=== PATIENT | male | born 1945 | race African-American/Black ===

== ENCOUNTER 2016-07-05 14:51 | Emergency (ER) | payer MEDICARE, MEDICAID ==
[2016-07-05] MEDS ORDERED: Ibuprofen 200 MG TAB ONE (15:00)
[2016-07-05] MEDS ORDERED: Acetaminophen 500 MG TAB ONE (15:02)
== END 2016-07-05 15:18 | disposition home or self-care (01) ==
LOC: BURERS 14:51
DX: B34.9 Viral infection, unspecified (principal); E11.9 Type 2 diabetes mellitus without complications; E78.5 Hyperlipidemia, unspecified; I11.0 Hypertensive heart disease with heart failure; I50.9 Heart failure, unspecified; J44.9 Chronic obstructive pulmonary disease, unspecified
CPT/HCPCS: 99283

== ENCOUNTER 2016-07-11 12:52 | Outpatient (CLI) | payer MEDICARE, MEDICAID ==
--- NOTE | 2016-07-11 22:35 | ULT ---
RIGHT LOWER EXTREMITY VENOUS ULTRASOUND 07/11/16 Ultrasonography of the right lower extremity was performed. No echogenic clot was seen. There is goo d compressibility of all deep veins from groin to ankle. There is normal doppler response to augment ation maneuvers. IMPRESSION: No evidence of DVT. POS: HOME
== END 2016-07-11 12:53 | disposition home or self-care (01) ==
LOC: BURULT 12:52
PROVIDERS: ATTEND Family Medicine
DX: I82.411 Acute embolism and thrombosis of right femoral vein (principal)

== ENCOUNTER 2016-07-29 10:17 | Emergency (ER) | payer MEDICARE, MEDICAID ==
[2016-07-29] MEDS ORDERED: Ondansetron ODT 4 MG TAB ONE (10:46)
[2016-07-29 11:06] LABS: #Eosinphils 0.1 thou/uL (0.0-0.7); #Lymphocytes 1.3 thou/uL (1.20-3.40); #Monocytes 0.4 thou/uL (0.11-0.59); #Neutrophils 4.7 thou/uL (1.40-6.50); %Basophils 0.5 % (0.0-1.0); %Eosinophils 0.8 % (0.0-10.0); %Lymphocytes 19.4 % (21.0-51.0); %Monocytes 6.4 % (0.0-10.0); %Neutrophils 72.9 % (42.0-75.0); Hemoglobin 13.4 g/dL (14.0-18.0); Mean Corpuscular HGB CONC 32.5 g/dL (32.0-36.0); Mean Corpuscular Hemoglobin 30.9 pg (27.0-31.0); Mean Platelet Volume 5.1 fL (7.4-10.4); Platelet Count 392 thou/uL (130-400); RBC Distribution Width 12.8 % (11.5-14.5); Red Blood Cell (RBC) Count 4.35 mill/uL (4.70-6.10); White Blood Cell (WBC) Count 6.5 thou/uL (4.8-10.8)
[2016-07-29 11:23] LABS: ALT (SGPT) 412 U/L (0-55); AST (SGOT) 539 U/L (5-34); Albumin 3.8 g/dL (3.4-4.8); Alkaline Phosphatase 137 U/L (40-150); Anion Gap 13 mmol/L (10-20); BUN (Urea Nitrogen) 14 mg/dL (8.4-25.7); Bilirubin, Total 1.3 mg/dL (0.2-1.2); CK (CPK) 58 U/L (30-200); Calc. Creatinine Clearance 0 mL/min (70-130); Calcium 9.2 mg/dL (7.8-10.44); Carbon Dioxide 28 mmol/L (23-31); Chloride 104 mmol/L (98-107); Estimated GFR-MDRD 68; Globulin 3.3 g/dL (2.4-3.5); Glucose 111 mg/dL (83-110); Lipase 54 U/L (8-78); Potassium 4.7 mmol/L (3.5-5.1); Protein, Total 7.1 g/dL (5.8-8.1); Sodium 140 mmol/L (136-145)
[2016-07-29 11:24] LABS: CKMB 1.4 ng/mL (0-6.6); Troponin I Less than 0.010 ng/mL (< 0.028)
== END 2016-07-29 13:07 | disposition short-term general hospital (02) ==
LOC: BURERS 10:17
DX: R11.2 Nausea with vomiting, unspecified (principal); R79.89 Other specified abnormal findings of blood chemistry; E11.9 Type 2 diabetes mellitus without complications; I11.0 Hypertensive heart disease with heart failure; I50.9 Heart failure, unspecified; J44.9 Chronic obstructive pulmonary disease, unspecified; E78.5 Hyperlipidemia, unspecified; Z79.84 Long term (current) use of oral hypoglycemic drugs; Z79.899 Other long term (current) drug therapy
CPT/HCPCS: 36416; 80053; 82553; 83690; 84484; 85025; 93005; 96360; Q0162

== ENCOUNTER 2016-11-11 11:13 | Emergency (ER) | payer MEDICARE, MEDICAID ==
[2016-11-11 11:52] LABS: ALT (SGPT) 14 U/L (8-55); AST (SGOT) 18 U/L (5-34); Albumin 3.8 g/dL (3.4-4.8); Alkaline Phosphatase 52 U/L (40-150); Anion Gap 17 mmol/L (10-20); BUN (Urea Nitrogen) 18 mg/dL (8.4-25.7); Bilirubin, Total 0.9 mg/dL (0.2-1.2); Calc. Creatinine Clearance 0 mL/min (70-130); Calcium 9.2 mg/dL (7.8-10.44); Carbon Dioxide 23 mmol/L (23-31); Chloride 100 mmol/L (98-107); Estimated GFR-MDRD 67; Globulin 3.8 g/dL (2.4-3.5); Glucose 110 mg/dL (83-110); Potassium 4.2 mmol/L (3.5-5.1); Protein, Total 7.6 g/dL (5.8-8.1); Sodium 136 mmol/L (136-145)
[2016-11-11 11:54] LABS: CKMB 0.5 ng/mL (0-6.6); Troponin I Less than 0.010 ng/mL (< 0.028)
[2016-11-11 11:59] LABS: Band 2 % (5-11); Hemoglobin 14.9 g/dL (14.0-18.0); Lymphocytes 18 % (21-51); MDiff Complete? YES; Mean Corpuscular HGB CONC 33.9 g/dL (32.0-36.0); Mean Corpuscular Hemoglobin 31.5 pg (27.0-31.0); Mean Corpuscular Volume 92.9 fl (80.0-94.0); Mean Platelet Volume 6.3 fL (7.4-10.4); Monocytes 11 % (0-10); Neutrophil 69 % (42-75); Platelet Count 218 thou/uL (130-400); RBC Distribution Width 12.6 % (11.5-14.5); Red Blood Cell (RBC) Count 4.73 mill/uL (4.70-6.10)
--- NOTE | 2016-11-11 20:45 | RAD ---
CHEST TWO VIEWS: Date: 11-11-16 Comparison: 03-08-16 FINDINGS: The heart is normal in size. The lungs are clear. There is no convincing sign of pneumonia at the mo ment. There is some mild prominence of some of the right basilar markings, however, this was true in 2016 so I am not convinced that this finding is acute. If symptoms continue, then a serial follow u p film to take a second look at this area could be useful. There are no large effusions. There is no congestion or edema. The mediastinum is unremarkable. IMPRESSION: Probably negative study, but consider follow up study for a second look at the right lung base if sy mptoms continue. Code T POS: HOME
== END 2016-11-11 12:18 | disposition home or self-care (01) ==
LOC: BURERS 11:13
DX: R50.9 Fever, unspecified (principal); I11.0 Hypertensive heart disease with heart failure; I50.9 Heart failure, unspecified; E11.9 Type 2 diabetes mellitus without complications; E78.5 Hyperlipidemia, unspecified; G47.30 Sleep apnea, unspecified; J44.9 Chronic obstructive pulmonary disease, unspecified; F17.210 Nicotine dependence, cigarettes, uncomplicated; Z79.84 Long term (current) use of oral hypoglycemic drugs; Z79.899 Other long term (current) drug therapy
CPT/HCPCS: 36415; 36416; 71020; 80053; 82553; 84443; 84484; 85025; 87040; 93005

== ENCOUNTER 2016-12-03 22:20 | Emergency (ER) | payer MEDICARE, MEDICAID ==
[2016-12-03] MEDS ORDERED: Ondansetron HCl/PF 4 MG/2 ML Vial ONE (22:51)
[2016-12-03 22:53] LABS: #Basophils 0.1 thou/uL (0.0-0.2); #Eosinphils 0.2 thou/uL (0.0-0.7); #Lymphocytes 2.1 thou/uL (1.20-3.40); #Monocytes 0.4 thou/uL (0.11-0.59); #Neutrophils 1.9 thou/uL (1.40-6.50); %Basophils 1.5 % (0.0-1.0); %Eosinophils 3.7 % (0.0-10.0); %Lymphocytes 45.3 % (21.0-51.0); %Monocytes 7.8 % (0.0-10.0); %Neutrophils 41.7 % (42.0-75.0); Hemoglobin 14.2 g/dL (14.0-18.0); Mean Corpuscular HGB CONC 33.3 g/dL (32.0-36.0); Mean Corpuscular Hemoglobin 30.5 pg (27.0-31.0); Mean Corpuscular Volume 91.8 fl (80.0-94.0); Mean Platelet Volume 5.3 fL (7.4-10.4); Platelet Count 260 thou/uL (130-400); RBC Distribution Width 12.4 % (11.5-14.5); Red Blood Cell (RBC) Count 4.66 mill/uL (4.70-6.10); White Blood Cell (WBC) Count 4.6 thou/uL (4.8-10.8)
[2016-12-03 23:07] LABS: ALT (SGPT) 109 U/L (8-55); AST (SGOT) 34 U/L (5-34); Albumin 3.8 g/dL (3.4-4.8); Alkaline Phosphatase 121 U/L (40-150); Anion Gap 16 mmol/L (10-20); BUN (Urea Nitrogen) 18 mg/dL (8.4-25.7); Bilirubin, Total 1.6 mg/dL (0.2-1.2); Calc. Creatinine Clearance 0 mL/min (70-130); Calcium 9.3 mg/dL (7.8-10.44); Carbon Dioxide 25 mmol/L (23-31); Chloride 102 mmol/L (98-107); Estimated GFR-MDRD 60; Globulin 3.6 g/dL (2.4-3.5); Glucose 122 mg/dL (83-110); Potassium 3.5 mmol/L (3.5-5.1); Protein, Total 7.4 g/dL (5.8-8.1); Sodium 139 mmol/L (136-145)
[2016-12-03 23:47] LABS: Lipase 53 U/L (8-78)
[2016-12-04 00:41] LABS: Blood, Urine Moderate (Negative); Clarity Cloudy (Clear); Glucose, Urine (Dipstick) 100 mg/dL (Negative); Leukocyte Small (Negative); Nitrite Positive (Negative); Protein, Urine (Dipstick) 30 mg/dL (Neg-Trace); Specific Gravity, Urine 1.015 (1.005-1.030)
[2016-12-04 00:44] LABS: Bilirubin Negative (Negative)
[2016-12-04 00:45] LABS: Bacteria/HPF 4+ HPF (None Seen); RBC/HPF GREATER THAN 50-TNTC HPF (0-3)
[2016-12-04 00:46] LABS: WBC/HPF 21-50 HPF (0-3)
[2016-12-04] MEDS ORDERED: cefTRIAXone\\ROCEPHIN 1 GM VIAL ONE (00:50)
[2016-12-04] MEDS ORDERED: Sodium Chloride 0.9% 100 ML ONE (00:50)
== END 2016-12-04 01:27 | disposition home or self-care (01) ==
LOC: BURERS 22:20
DX: N39.0 Urinary tract infection, site not specified (principal); I11.0 Hypertensive heart disease with heart failure; E11.9 Type 2 diabetes mellitus without complications; E78.5 Hyperlipidemia, unspecified; F17.210 Nicotine dependence, cigarettes, uncomplicated; J45.909 Unspecified asthma, uncomplicated; I50.9 Heart failure, unspecified; J44.9 Chronic obstructive pulmonary disease, unspecified; Z79.84 Long term (current) use of oral hypoglycemic drugs; Z79.899 Other long term (current) drug therapy
CPT/HCPCS: 51701; 80053; 81003; 81015; 83690; 85025; 87077; 87086; 87186; 93005; 96361; 96365; 96375; J0696; J2405; J7050

== ENCOUNTER 2016-12-21 22:52 | Emergency (ER) | payer MEDICARE, MEDICAID ==
[2016-12-21] MEDS ORDERED: Nitroglycerin 2% Ointment 1 INCH/1 GM Packet ONE (23:15)
[2016-12-21] MEDS ORDERED: Famotidine In NaCl 20 mg/50 ml Premix Bag ONE (23:20)
[2016-12-21 23:27] LABS: #Basophils 0.1 thou/uL (0.0-0.2); #Eosinphils 0.2 thou/uL (0.0-0.7); #Monocytes 0.5 thou/uL (0.11-0.59); #Neutrophils 2.7 thou/uL (1.40-6.50); %Basophils 1.9 % (0.0-1.0); %Eosinophils 4.2 % (0.0-10.0); %Lymphocytes 35.8 % (21.0-51.0); %Monocytes 8.6 % (0.0-10.0); %Neutrophils 49.5 % (42.0-75.0); Hemoglobin 14.4 g/dL (14.0-18.0); Mean Corpuscular HGB CONC 35.4 g/dL (32.0-36.0); Mean Corpuscular Hemoglobin 33.3 pg (27.0-31.0); Mean Corpuscular Volume 93.9 fl (80.0-94.0); Mean Platelet Volume 5.4 fL (7.4-10.4); Platelet Count 319 thou/uL (130-400); Red Blood Cell (RBC) Count 4.32 mill/uL (4.70-6.10); White Blood Cell (WBC) Count 5.5 thou/uL (4.8-10.8)
[2016-12-21 23:39] LABS: ALT (SGPT) 15 U/L (8-55); AST (SGOT) 16 U/L (5-34); Alkaline Phosphatase 66 U/L (40-150); Anion Gap 14 mmol/L (10-20); BUN (Urea Nitrogen) 14 mg/dL (8.4-25.7); Bilirubin, Total 0.8 mg/dL (0.2-1.2); CK (CPK) 168 U/L (30-200); Calc. Creatinine Clearance 0 mL/min (70-130); Calcium 9.2 mg/dL (7.8-10.44); Carbon Dioxide 26 mmol/L (23-31); Chloride 104 mmol/L (98-107); Estimated GFR-MDRD 44; Globulin 3.2 g/dL (2.4-3.5); Glucose 122 mg/dL (83-110); Potassium 3.9 mmol/L (3.5-5.1); Protein, Total 7.2 g/dL (5.8-8.1); Sodium 140 mmol/L (136-145)
[2016-12-21 23:40] LABS: CKMB 2.3 ng/mL (0-6.6); Troponin I Less than 0.010 ng/mL (< 0.028)
--- NOTE | 2016-12-21 23:59 | RAD ---
PORTABLE CHEST 12/21/16 An AP portable film at 2301 is compared with a 11/28 study. The heart size remains normal. There is no vascular congestion, edema, or pleural effusion. No loba r pulmonary infiltrate was seen. Calcific changes are seen in the aorta. The trachea is midline. IMPRESSION: Arteriosclerosis but no acute findings. POS: HOME
== END 2016-12-22 00:53 | disposition short-term general hospital (02) ==
LOC: BURERS 22:52
DX: R07.9 Chest pain, unspecified (principal); I11.0 Hypertensive heart disease with heart failure; I50.9 Heart failure, unspecified; E11.9 Type 2 diabetes mellitus without complications; E78.5 Hyperlipidemia, unspecified; J45.909 Unspecified asthma, uncomplicated; F17.210 Nicotine dependence, cigarettes, uncomplicated; J44.9 Chronic obstructive pulmonary disease, unspecified; G47.30 Sleep apnea, unspecified; Z86.718 Personal history of other venous thrombosis and embolism; Z86.711 Personal history of pulmonary embolism; Z86.73 Personal history of transient ischemic attack (TIA), and cerebral infarction without residual deficits; Z79.84 Long term (current) use of oral hypoglycemic drugs; Z79.899 Other long term (current) drug therapy; Z79.01 Long term (current) use of anticoagulants
CPT/HCPCS: 36416; 71010; 80053; 82553; 83880; 84484; 85025; 93005; 96365

== ENCOUNTER 2016-12-25 17:46 | Emergency (ER) | payer MEDICARE, MEDICAID ==
[2016-12-25 18:18] LABS: #Basophils 0.1 thou/uL (0.0-0.2); #Eosinphils 0.1 thou/uL (0.0-0.7); #Lymphocytes 1.1 thou/uL (1.20-3.40); #Monocytes 0.5 thou/uL (0.11-0.59); #Neutrophils 3.6 thou/uL (1.40-6.50); %Eosinophils 2.8 % (0.0-10.0); %Lymphocytes 20.3 % (21.0-51.0); %Monocytes 9.3 % (0.0-10.0); %Neutrophils 66.7 % (42.0-75.0); Hemoglobin 12.6 g/dL (14.0-18.0); Mean Corpuscular Hemoglobin 31.5 pg (27.0-31.0); Mean Corpuscular Volume 95.3 fl (80.0-94.0); Mean Platelet Volume 4.4 fL (7.4-10.4); Platelet Count 284 thou/uL (130-400); Red Blood Cell (RBC) Count 4.01 mill/uL (4.70-6.10); White Blood Cell (WBC) Count 5.4 thou/uL (4.8-10.8)
[2016-12-25 18:24] LABS: INR-International Normal Ratio 1.1; Prothrombin Time 14.7 SEC (12.0-14.7)
[2016-12-25 18:34] LABS: ALT (SGPT) 14 U/L (8-55); AST (SGOT) 16 U/L (5-34); Albumin 3.8 g/dL (3.4-4.8); Alkaline Phosphatase 53 U/L (40-150); Anion Gap 12 mmol/L (10-20); BUN (Urea Nitrogen) 15 mg/dL (8.4-25.7); Bilirubin, Total 0.8 mg/dL (0.2-1.2); Calc. Creatinine Clearance 0 mL/min (70-130); Calcium 8.7 mg/dL (7.8-10.44); Carbon Dioxide 25 mmol/L (23-31); Chloride 105 mmol/L (98-107); Estimated GFR-MDRD 62; Globulin 2.8 g/dL (2.4-3.5); Glucose 93 mg/dL (83-110); Potassium 3.5 mmol/L (3.5-5.1); Protein, Total 6.6 g/dL (5.8-8.1); Sodium 138 mmol/L (136-145)
[2016-12-25 18:41] LABS: CKMB 1.1 ng/mL (0-6.6); Troponin I 0.011 ng/mL (< 0.028)
[2016-12-26] MEDS ORDERED: Tetracaine HCl 0.5% Ophth Soln 2 ML Bottle ONE (06:05)
--- NOTE | 2016-12-26 07:02 | CT ---
CT OF THE BRAIN WITHOUT CONTRAST: Date: 12/25/16 Comparison is made with a October 2015 CT. 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 No acute stroke was seen. There is no sign of bleeding, mass, or edema. Atrophy is present. The ventricles show slight dilation commens urate with the degree of atrophy seen. IMPRESSION: No acute intracranial findings. POS: HOME
--- NOTE | 2016-12-26 07:03 | RAD ---
RIGHT INDEX FINGER: Date: 12/25/16 FINDINGS: Three views show no fracture. There is no dislocation. No opaque foreign bodies noted. IMPRESSION: No acute bony finding. POS: HOME
== END 2016-12-25 19:16 | disposition home or self-care (01) ==
LOC: BURERS 17:46
DX: S61.210A Laceration without foreign body of right index finger without damage to nail, initial encounter (principal); E11.9 Type 2 diabetes mellitus without complications; E78.5 Hyperlipidemia, unspecified; J45.909 Unspecified asthma, uncomplicated; J44.9 Chronic obstructive pulmonary disease, unspecified; I11.0 Hypertensive heart disease with heart failure; I50.9 Heart failure, unspecified; Z86.711 Personal history of pulmonary embolism; F17.210 Nicotine dependence, cigarettes, uncomplicated; W19.XXXA Unspecified fall, initial encounter
CPT/HCPCS: 70450; 80053; 82553; 84484; 85025; 85610; 85730

== ENCOUNTER 2016-12-31 08:36 | Emergency (ER) | payer MEDICARE, MEDICAID ==
[2016-12-31 09:18] LABS: #Basophils 0.1 thou/uL (0.0-0.2); #Eosinphils 0.2 thou/uL (0.0-0.7); #Monocytes 0.5 thou/uL (0.11-0.59); #Neutrophils 5.2 thou/uL (1.40-6.50); %Basophils 0.9 % (0.0-1.0); %Eosinophils 2.2 % (0.0-10.0); %Lymphocytes 15.2 % (21.0-51.0); %Monocytes 6.6 % (0.0-10.0); %Neutrophils 75.2 % (42.0-75.0); Hemoglobin 14.1 g/dL (14.0-18.0); Mean Corpuscular HGB CONC 33.8 g/dL (32.0-36.0); Mean Corpuscular Hemoglobin 32.1 pg (27.0-31.0); Mean Corpuscular Volume 94.8 fl (80.0-94.0); Mean Platelet Volume 5.9 fL (7.4-10.4); Platelet Count 265 thou/uL (130-400); RBC Distribution Width 13.3 % (11.5-14.5); Red Blood Cell (RBC) Count 4.39 mill/uL (4.70-6.10); White Blood Cell (WBC) Count 6.9 thou/uL (4.8-10.8)
[2016-12-31 09:20] LABS: CKMB 1.1 ng/mL (0-6.6); Troponin I Less than 0.010 ng/mL (< 0.028)
[2016-12-31 09:23] LABS: ALT (SGPT) 182 U/L (8-55); AST (SGOT) 67 U/L (5-34); Alkaline Phosphatase 204 U/L (40-150); Anion Gap 13 mmol/L (10-20); BUN (Urea Nitrogen) 13 mg/dL (8.4-25.7); Bilirubin, Total 1.8 mg/dL (0.2-1.2); Calc. Creatinine Clearance 0 mL/min (70-130); Calcium 9.5 mg/dL (7.8-10.44); Carbon Dioxide 27 mmol/L (23-31); Chloride 102 mmol/L (98-107); Estimated GFR-MDRD 84; Globulin 3.3 g/dL (2.4-3.5); Glucose 135 mg/dL (83-110); Lipase 176 U/L (8-78); Potassium 4.2 mmol/L (3.5-5.1); Protein, Total 7.3 g/dL (5.8-8.1); Sodium 138 mmol/L (136-145)
[2016-12-31] MEDS ORDERED: Lidocaine Viscous Sol 2% 15 ml UD Cup ONE (10:02)
[2016-12-31] MEDS ORDERED: Mag-Al Plus 1200 MG/1200 MG/120 MG/30 ML UDCUP ONE (10:02)
== END 2016-12-31 11:00 | disposition short-term general hospital (02) ==
LOC: BURERS 08:36
DX: R10.816 Epigastric abdominal tenderness (principal); I11.0 Hypertensive heart disease with heart failure; I50.9 Heart failure, unspecified; E11.9 Type 2 diabetes mellitus without complications; J45.909 Unspecified asthma, uncomplicated; F17.210 Nicotine dependence, cigarettes, uncomplicated; G47.30 Sleep apnea, unspecified
CPT/HCPCS: 36415; 80053; 82553; 83690; 84484; 85025; 93005; 96361; 96374; J2270

== ENCOUNTER 2017-06-04 12:13 | Emergency (ER) | payer MEDICARE, MEDICAID ==
[2017-06-04] MEDS ORDERED: Nitroglycerin 0.4 MG TAB (25 Tab Bottle) ONE ×2 (12:36→13:27)
[2017-06-04 12:41] LABS: PTT 36.8 SEC (22.9-36.1); Prothrombin Time 13.4 SEC (12.0-14.7)
[2017-06-04 12:47] LABS: #Basophils 0.1 thou/uL (0.0-0.2); #Eosinphils 0.2 thou/uL (0.0-0.7); #Lymphocytes 2.5 thou/uL (1.20-3.40); #Monocytes 0.3 thou/uL (0.11-0.59); #Neutrophils 2.7 thou/uL (1.40-6.50); %Basophils 1.6 % (0.0-1.0); %Eosinophils 3.3 % (0.0-10.0); %Lymphocytes 42.8 % (21.0-51.0); %Neutrophils 47.3 % (42.0-75.0); Hemoglobin 14.8 g/dL (14.0-18.0); Mean Corpuscular HGB CONC 34.1 g/dL (32.0-36.0); Mean Corpuscular Hemoglobin 30.6 pg (27.0-31.0); Mean Corpuscular Volume 89.7 fl (80.0-94.0); Platelet Count 349 thou/uL (130-400); RBC Distribution Width 12.5 % (11.5-14.5); Red Blood Cell (RBC) Count 4.84 mill/uL (4.70-6.10); White Blood Cell (WBC) Count 5.7 thou/uL (4.8-10.8)
[2017-06-04 12:53] LABS: ALT (SGPT) 17 U/L (8-55); AST (SGOT) 23 U/L (5-34); Albumin 4.2 g/dL (3.4-4.8); Alkaline Phosphatase 82 U/L (40-150); Anion Gap 15 mmol/L (10-20); BUN (Urea Nitrogen) 16 mg/dL (8.4-25.7); Bilirubin, Total 0.5 mg/dL (0.2-1.2); Calc. Creatinine Clearance 0 mL/min (70-130); Calcium 9.5 mg/dL (7.8-10.44); Chloride 101 mmol/L (98-107); Estimated GFR-MDRD 67; Globulin 3.6 g/dL (2.4-3.5); Glucose 85 mg/dL (83-110); Lipase 58 U/L (8-78); Potassium 4.1 mmol/L (3.5-5.1); Protein, Total 7.8 g/dL (5.8-8.1); Sodium 138 mmol/L (136-145)
[2017-06-04 12:54] LABS: CKMB 1.8 ng/mL (0-6.6); Troponin I Less than 0.010 ng/mL (< 0.028)
[2017-06-04 13:05] LABS: Carbon Dioxide 26 mmol/L (23-31)
[2017-06-04 15:54] LABS: Troponin I Less than 0.010 ng/mL (< 0.028)
--- NOTE | 2017-06-04 20:32 | RAD ---
PORTABLE CHEST: 06/04/17 An AP portable film at 1221 is compared with an 12/21/16 study. The heart is normal in size. Some calcification is seen in the aortic arch. There is no vascular liliane estion, edema, or pleural effusion. IMPRESSION: No acute thoracic findings. POS: HOME
--- NOTE | 2017-06-04 22:30 | CT ---
CT ANGIO OF THE CHEST 06/04/[address] of the chest was done after injecting a bolus of IV contrast for evaluation of chest pain w ith an elevated D-dimer. Axial slices were acquired, then various oblique reformations through the ar teries were done afterwards. The timing of the bolus is slightly suboptimal such that there is some f low artifact even in the main pulmonary arteries. Thus, this is a medium sensitivity study. Small pul monary emboli would be missed. There were no definite filling defects to suggest pulmonary emboli. There was no signs of aortic aneu rysm or dissection. The ascending aorta is mildly dilated measuring about 4 cm in diameter. A small a mount of calcification is seen in the aortic arch. It is difficult to assess the coronary arteries fo r calcification. There is no pericardial fluid. No mediastinal mass or hematoma was seen. There is no adenopathy. The lungs show no lobar infiltrate or effusion. The lung bases in particular show increa sed markings that may be a combination of fibrosis and atelectasis. Scans into the upper abdomen showed no acute findings in the areas scanned. There does appear to be o ne or two cysts in the right kidney, but the study is not definitive for it. IMPRESSION: No evidence of pulmonary embolism. Moderate sensitivity study. Fibrotic changes in the lung bases. POS: HOME
== END 2017-06-04 15:39 | disposition short-term general hospital (02) ==
LOC: BURERS 12:13
DX: R07.9 Chest pain, unspecified (principal); E11.9 Type 2 diabetes mellitus without complications; E78.5 Hyperlipidemia, unspecified; I11.0 Hypertensive heart disease with heart failure; I50.9 Heart failure, unspecified; J44.9 Chronic obstructive pulmonary disease, unspecified; G47.30 Sleep apnea, unspecified; Z91.14 Patient's other noncompliance with medication regimen; Z86.73 Personal history of transient ischemic attack (TIA), and cerebral infarction without residual deficits; Z87.891 Personal history of nicotine dependence; Z86.718 Personal history of other venous thrombosis and embolism; Z79.84 Long term (current) use of oral hypoglycemic drugs; Z79.899 Other long term (current) drug therapy; Z86.711 Personal history of pulmonary embolism
CPT/HCPCS: 71045; 71275; 80053; 80307; 82553; 83690; 83880; 84484; 85025; 85379; 85610; 85730; 93005; 94760

== ENCOUNTER 2017-08-15 11:44 | Emergency (ER) | payer MEDICARE, MEDICAID | END 2017-08-15 12:18 | disposition home or self-care (01) | LOC: BURERS 11:44 | DX: E11.65 Type 2 diabetes mellitus with hyperglycemia (principal); I11.0 Hypertensive heart disease with heart failure; I50.9 Heart failure, unspecified; E78.5 Hyperlipidemia, unspecified; J44.9 Chronic obstructive pulmonary disease, unspecified; G47.30 Sleep apnea, unspecified; Z86.73 Personal history of transient ischemic attack (TIA), and cerebral infarction without residual deficits; Z87.891 Personal history of nicotine dependence; Z79.84 Long term (current) use of oral hypoglycemic drugs; Z79.01 Long term (current) use of anticoagulants; Z79.899 Other long term (current) drug therapy | CPT/HCPCS: 36416; 99284 ==

== ENCOUNTER 2018-01-26 00:21 | Emergency (ER) | payer MEDICARE, MEDICAID ==
[2018-01-26 01:18] LABS: ALT (SGPT) 9 U/L (8-55); AST (SGOT) 10 U/L (5-34); Albumin 3.9 g/dL (3.4-4.8); Alkaline Phosphatase 70 U/L (40-150); Anion Gap 14 mmol/L (10-20); BUN (Urea Nitrogen) 15 mg/dL (8.4-25.7); Bilirubin, Total 0.6 mg/dL (0.2-1.2); Calc. Creatinine Clearance 0 mL/min (70-130); Carbon Dioxide 24 mmol/L (23-31); Chloride 103 mmol/L (98-107); Estimated GFR-MDRD 53; Globulin 3.5 g/dL (2.4-3.5); Glucose 128 mg/dL (83-110); Lipase 26 U/L (8-78); Potassium 3.9 mmol/L (3.5-5.1); Protein, Total 7.4 g/dL (5.8-8.1); Sodium 137 mmol/L (136-145)
[2018-01-26 01:19] LABS: #Basophils 0.1 thou/uL (0.0-0.2); #Eosinphils 0.1 thou/uL (0.0-0.7); #Lymphocytes 1.7 thou/uL (1.20-3.40); #Monocytes 1.1 thou/uL (0.11-0.59); #Neutrophils 6.2 thou/uL (1.40-6.50); %Eosinophils 1.4 % (0.0-10.0); %Lymphocytes 18.4 % (21.0-51.0); %Monocytes 11.5 % (0.0-10.0); %Neutrophils 67.7 % (42.0-75.0); CKMB 0.9 ng/mL (0-6.6); Mean Corpuscular HGB CONC 33.6 g/dL (32.0-36.0); Mean Corpuscular Hemoglobin 30.2 pg (27.0-31.0); Mean Corpuscular Volume 89.9 fL (78.0-98.0); Mean Platelet Volume 6.4 fL (7.4-10.4); Platelet Count 253 thou/uL (130-400); RBC Distribution Width 13.2 % (11.5-14.5); Red Blood Cell (RBC) Count 4.31 mill/uL (4.70-6.10); Troponin I Less than 0.010 ng/mL (< 0.028); White Blood Cell (WBC) Count 9.1 thou/uL (4.8-10.8)
[2018-01-26] MEDS ORDERED: Morphine 4 MG/ML Carpuject ONE (01:44)
[2018-01-26 03:19] LABS: PTT 40.2 SEC (22.9-36.1); Prothrombin Time 13.4 SEC (12.0-14.7)
--- NOTE | 2018-01-26 18:06 | CT ---
PRELIMINARY REPORT/[facility]/EMERGENCY AFTER HOURS PROCEDURE: EXAM: CT Angiography Abdomen and Pelvis With Intravenous Contrast CLINICAL HISTORY: 72 years old, male; Pain; Other: Neck/chest/abd; Patient HX: High d dimer HX pe; S in past; Additiona l info: Gave obl; S for seen clots this a dissection protocol old report faxed cant send films TECHNIQUE: Axial computed tomographic angiography images of the abdomen and pelvis with intravenous contrast. Al l CT scans at this facility use at least one of these dose optimization techniques: automated exposur e control; mA and/or kV adjustment per patient size (includes targeted exams where dose is matched to clinical indication); or iterative reconstruction. MIP reconstructed images were created and reviewed. CONTRAST: 100 mL of ISOVUE 370 administered intravenously. COMPARISON: No relevant prior studies available. FINDINGS: VASCULATURE: Aorta: The infrarenal aorta and bilateral common, external and internal iliac arteries demonstrate mo derate atherosclerotic calcification with multifocal mild stenosis. There is no evidence of aortic di ssection, leak, rupture, or other complications. Celiac trunk and mesenteric arteries: Celiac artery, SMA and KAREY are patent. No occlusion or signific ant stenosis. Renal arteries: No acute findings. No occlusion or significant stenosis. Iliac arteries: See above. Lung bases: see concurrent CTA thorax report. ABDOMEN: Liver: Normal. No mass. Gallbladder and bile ducts: There is nonspecific 6 mm density within the distal CBD possibly represen ting choledocholithiasis versus prominent papilla at the ampulla of Vater. There has been a cholecyst ectomy. There has been a cholecystectomy. Pancreas: The pancreas appears normal. No ductal dilation. Spleen: The spleen is normal. Adrenals: Normal. No mass. Kidneys and ureters: There are multiple simple right renal cysts. No hydronephrosis. Stomach and bowel: The stomach is normal. The duodenum is unremarkable. The colon is normal. No obstruction. No mucosal thickening. PELVIS: Appendix: No appendix is specifically identified. No associated signs to suggest acute appendicitis. Bladder: The bladder is normal. Reproductive: The prostate gland and seminal vesicles are normal. ABDOMEN and PELVIS: Intraperitoneal space: Normal. No significant fluid collection. No free air. Bones/joints: No acute fracture. No dislocation. Soft tissues: Normal. Lymph nodes: Normal. No enlarged lymph nodes. IMPRESSION: 1. There is no evidence of aortic dissection, leak, rupture, or other complications. 2. There is nonspecific 6 mm density within the distal CBD possibly representing choledocholithiasis versus prominent papilla at the ampulla of Vater. Correlation with bilirubin levels is advised. EXAM: CT Angiography Chest With Intravenous Contrast EXAM DATE/TIME: Exam ordered 01/26/2018 2:09 AM CLINICAL HISTORY: 72 years old, male; Pain; Other: Neck/chest/abd; Patient HX: High d dimer HX pe; S in past; Additiona l info: Gave obl; S for seen clots this a dissection protocol old report faxed cant send films TECHNIQUE: Axial computed tomographic angiography images of the chest with intravenous contrast using pulmonary embolism protocol. CONTRAST: 100 mL of ISOVUE 370 administered intravenously. 100 mL of ISOVUE 370 administered intravenously. COMPARISON: No relevant prior studies available. FINDINGS: Pulmonary arteries: There are filling defects within the segmental RIGHT lower lobe and LEFT upper an d lower lobe pulmonary, segmental and subsegmental arteries consistent with acute pulmonary embolism. Aorta: No acute findings. No thoracic aortic aneurysm. Lungs: There is moderate RIGHT and mild LEFT lower lobe atelectasis No mass. Pleural space: Normal. No significant effusion. No pneumothorax. Heart: RV LV ratio measures approximately 1 or less; no CT evidence of RIGHT heart strain. No signifi cant pericardial effusion. Bones/joints: No acute fracture. No dislocation. Soft tissues: Normal. Lymph nodes: Normal. No enlarged lymph nodes. IMPRESSION: Acute bilateral pulmonary emboli as above. THIS REPORT CONTAINS FINDINGS THAT MAY BE CRITICAL TO PATIENT CARE. The findings were verbally commun icated via telephone conference with SALUD STANLEY at 3:00 AM CDT on 01/26/2018. The findings were ack nowledged and understood. Thank you for allowing us to participate in the care of your patient. Dictated and Authenticated by: Layton Tesfaye MD 01/26/2018 3:15 AM Central Time ([place] & [place]) FINAL REPORT EMERGENT AFTER HOURS CT ANGIOGRAM CHEST AND ABDOMEN AND PELVIS WITH IV CONTRAST AND 3D RECONSTRUCTION S: DATE: 01/26/18. IMPRESSION: 1. Bilateral pulmonary emboli involving subsegmental pulmonary arteries right lower lobe as well as the distal left main pulmonary artery, segmental, and subsegmental pulmonary arteries of the left lo wer lobe and left upper lobe. 2. Small right pleural effusion. There are parenchymal densities seen within the right lung base, p robably related to atelectasis, although pneumonia cannot be entirely excluded. There is atelectasis at the left lung base. 3. Thoracic and abdominal aorta are normal in caliber without evidence of an aortic dissection. Min imal vascular calcifications are seen in the aortic arch and involving the coronary arteries. There is irregular atherosclerotic plaque and calcification seen involving the abdominal aorta and iliac ar teries. 4. There is moderate narrowing at the origin of the right internal iliac artery. 5. There is no evidence of an aortic dissection involving the thoracic or abdominal aorta. 6. Post cholecystectomy changes. 7. Right renal cyst with too small to characterize hypodense lesions in each kidney. 8. Enlargement of the prostate gland which is heterogeneous in appearance. 9. The celiac and superior mesenteric as well as inferior mesenteric arteries appear patent. There a re 2 patent right and a single patent left renal arteries present. 10. There is an increased density focus measuring approximately 6 mm within the distal common duct ne ar the level of the ampulla. Choledocholithiasis cannot be entirely excluded, although this may be r elated to prominent papilla at the ampulla of Vater. There are post cholecystectomy changes. There is no intrahepatic biliary ductal dilatation, and the common duct is normal in caliber for post mark cystectomy changes. 11. Findings are in agreement with the preliminary report by [facility]. POS: [facility]
== END 2018-01-26 03:36 | disposition short-term general hospital (02) ==
LOC: BURERS 00:21
DX: I26.99 Other pulmonary embolism without acute cor pulmonale (principal); I11.0 Hypertensive heart disease with heart failure; I50.9 Heart failure, unspecified; E11.9 Type 2 diabetes mellitus without complications; J44.9 Chronic obstructive pulmonary disease, unspecified; G47.30 Sleep apnea, unspecified; Z86.73 Personal history of transient ischemic attack (TIA), and cerebral infarction without residual deficits; Z86.711 Personal history of pulmonary embolism; Z87.891 Personal history of nicotine dependence; Z79.899 Other long term (current) drug therapy; Z79.84 Long term (current) use of oral hypoglycemic drugs
CPT/HCPCS: 71275; 80053; 82553; 83690; 84484; 85025; 85379; 85610; 85730; 93005; 96361; 96374; J2270

== ENCOUNTER 2018-07-25 16:52 | Emergency (ER) | payer MEDICARE, MEDICAID ==
[~2018-07-25 16:52] MED LIST: Iopamidol 370 76% 100 ML VIAL ONE
[2018-07-25 17:38] LABS: Bilirubin Small (Negative); Blood, Urine Small (Negative); Clarity SLIGHTLY (Clear); Glucose, Urine (Dipstick) Negative (Negative); Leukocyte Trace (Negative); Nitrite Negative (Negative); Protein, Urine (Dipstick) Trace mg/dL (Neg-Trace); pH, Urine 5.5 (5.0-9.0)
[2018-07-25 17:47] LABS: Bacteria/HPF Rare-Few HPF (None Seen); Crystals/HPF None Seen HPF (Negative); Hyaline Casts/LPF NONE SEEN LPF (0-3 Hyaline); Oval Fat Bodies/HPF None Seen HPF (None Seen); RBC/HPF 0-3 HPF (0-3); Renal Epithelial None Seen HPF (0-3); Sperm/HPF None Seen HPF (None Seen); Squamous Epithelial 0-3 HPF (0-3); Transitional Epithelial NONE SEEN HPF (0-3); Trichomonas/HPF None Seen HPF (None Seen); WBC/HPF 0-3 HPF (0-3); Yeast-All Forms None Seen HPF (None Seen)
[2018-07-25 17:48] LABS: Other Casts/LPF None Seen LPF (0-3 Hyaline)
[2018-07-25 17:51] LABS: ALT (SGPT) 8 U/L (8-55); AST (SGOT) 12 U/L (5-34); Albumin 3.8 g/dL (3.4-4.8); Alkaline Phosphatase 67 U/L (40-150); Anion Gap 14 mmol/L (10-20); BUN (Urea Nitrogen) 14 mg/dL (8.4-25.7); Bilirubin, Total 0.3 mg/dL (0.2-1.2); Calc. Creatinine Clearance 0 mL/min (70-130); Calcium 9.2 mg/dL (7.8-10.44); Carbon Dioxide 24 mmol/L (23-31); Chloride 108 mmol/L (98-107); Estimated GFR-MDRD 50; Glucose 133 mg/dL (83-110); Potassium 3.9 mmol/L (3.5-5.1); Protein, Total 6.8 g/dL (5.8-8.1); Sodium 142 mmol/L (136-145)
[2018-07-25 17:57] LABS: Eosinophils 7 % (0-10); Hemoglobin 13.7 g/dL (14.0-18.0); Lymphocytes 37 % (21-51); MDiff Complete? YES; Mean Corpuscular HGB CONC 32.8 g/dL (32.0-36.0); Mean Corpuscular Hemoglobin 30.5 pg (27.0-31.0); Mean Corpuscular Volume 93.1 fL (78.0-98.0); Mean Platelet Volume 5.4 fL (7.4-10.4); Monocytes 2 % (0-10); Neutrophil 54 % (42-75); Platelet Count 291 thou/uL (130-400); RBC Distribution Width 14.7 % (11.5-14.5); Red Blood Cell (RBC) Count 4.49 mill/uL (4.70-6.10); White Blood Cell (WBC) Count 5.1 thou/uL (4.8-10.8)
--- NOTE | 2018-07-26 00:09 | CT ---
CT BRAIN WITHOUT CONTRAST 07/25/18 Comparison is made with the prior of 12/25/16. No intracranial bleeding or extra-axial hematoma was seen. There is no sign of mass, edema, or acute stroke. There is encephalomalacia from an old stroke in the left basal ganglia region and probably th e anterior part of the left thalamus. The ventricles are normal in size for age, atrophy and the torres cent stroke. There is no sign of ventricular obstruction. The paranasal sinuses are generally clear, though there are a few areas of mucosa thickening or maybe even small polyps in the ethmoid sinuses b ilaterally. IMPRESSION: No acute intracranial findings. Old ischemic changes as described. POS: HOME
--- NOTE | 2018-07-26 08:05 | CT ---
CT OF THE CHEST AND ABDOMEN AND PELVIS: DATE: 07/25/2018. FINDINGS: Spiral CT of the chest, abdomen, and pelvis was done following trauma. Axial slices were acquired, t hen coronal and sagittal reconstructions were done. CT OF THE THORAX: The lungs are fully inflated and show no pneumothorax or pulmonary contusion. Some infiltrative enriquez ges in the right lower lobe are old and actually improved when compared with the prior CT. No acute infiltrates or effusions were seen. No rib fractures were evident. The thoracic spine appeared inta ct. Very minor anterior wedging of T9 was present previously. The heart was normal in size and showed no pericardial fluid. There are minimal coronary artery calc ifications. There is no sign of mediastinal hematoma, mass, or adenopathy. CT OF THE ABDOMEN AND PELVIS: The liver, spleen, pancreas, adrenal glands, kidneys, and abdominal aorta showed no acute findings. A cyst is present in the right kidney and is of no current concern. There are actually several, incl uding a parapelvic cyst. The bowel shows no distention, inflammatory change, or wall thickening. There is no free air or free fluid. CT of the pelvis shows no pelvic hemorrhage, free fluid, or inflammatory change. The bony pelvis and hips appear intact. There are degenerative changes in the spine, but no sign of acute fracture. IMPRESSION: No acute traumatic findings in the chest, abdomen, or pelvis. POS: HOME
== END 2018-07-25 18:43 | disposition home or self-care (01) ==
LOC: BURERS 16:52
DX: S30.1XXA Contusion of abdominal wall, initial encounter (principal); R53.1 Weakness; E11.9 Type 2 diabetes mellitus without complications; E78.5 Hyperlipidemia, unspecified; I11.0 Hypertensive heart disease with heart failure; I50.9 Heart failure, unspecified; J44.9 Chronic obstructive pulmonary disease, unspecified; G47.30 Sleep apnea, unspecified; Z86.73 Personal history of transient ischemic attack (TIA), and cerebral infarction without residual deficits; Z86.718 Personal history of other venous thrombosis and embolism; Z87.891 Personal history of nicotine dependence; Z79.899 Other long term (current) drug therapy; Z79.84 Long term (current) use of oral hypoglycemic drugs; W22.8XXA Striking against or struck by other objects, initial encounter
CPT/HCPCS: 36416; 70450; 71260; 74177; 80053; 81003; 81015; 82274; 83605; 84484; 85025; 93005; 94760; Q9967

== ENCOUNTER 2018-09-07 21:35 | Emergency (ER) | payer MEDICARE, OTHER ==
[2018-09-07 22:36] LABS: #Basophils 0.1 thou/uL (0.0-0.2); #Eosinphils 0.2 thou/uL (0.0-0.7); #Lymphocytes 2.2 thou/uL (1.20-3.40); #Monocytes 0.3 thou/uL (0.11-0.59); #Neutrophils 3.3 thou/uL (1.40-6.50); %Basophils 1.6 % (0.0-1.0); %Lymphocytes 35.8 % (21.0-51.0); %Neutrophils 54.6 % (42.0-75.0); Hemoglobin 14.1 g/dL (14.0-18.0); Mean Corpuscular HGB CONC 32.5 g/dL (32.0-36.0); Mean Corpuscular Hemoglobin 29.7 pg (27.0-31.0); Mean Corpuscular Volume 91.3 fL (78.0-98.0); Mean Platelet Volume 5.6 fL (7.4-10.4); Platelet Count 274 thou/uL (130-400); RBC Distribution Width 13.1 % (11.5-14.5); Red Blood Cell (RBC) Count 4.75 mill/uL (4.70-6.10); White Blood Cell (WBC) Count 6.1 thou/uL (4.8-10.8)
[2018-09-07 22:39] LABS: Bilirubin Negative (Negative); Blood, Urine Moderate (Negative); Clarity Slightly Cloudy (Clear); Glucose, Urine (Dipstick) Negative (Negative); Leukocyte Trace (Negative); Nitrite Negative (Negative); Protein, Urine (Dipstick) Trace mg/dL (Neg-Trace); pH, Urine 5.5 (5.0-9.0)
[2018-09-07 22:42] LABS: Bacteria/HPF 1+ HPF (None Seen); Transitional Epithelial 0-3 HPF (0-3)
[2018-09-07 22:46] LABS: ALT (SGPT) 12 U/L (8-55); AST (SGOT) 18 U/L (5-34); Albumin 4.1 g/dL (3.4-4.8); Alkaline Phosphatase 74 U/L (40-150); Anion Gap 14 mmol/L (10-20); BUN (Urea Nitrogen) 17 mg/dL (8.4-25.7); Bilirubin, Total 0.5 mg/dL (0.2-1.2); Calc. Creatinine Clearance 0 mL/min (70-130); Calcium 9.4 mg/dL (7.8-10.44); Carbon Dioxide 25 mmol/L (23-31); Chloride 105 mmol/L (98-107); Estimated GFR-MDRD 49; Globulin 3.5 g/dL (2.4-3.5); Glucose 103 mg/dL (83-110); Potassium 3.9 mmol/L (3.5-5.1); Protein, Total 7.6 g/dL (5.8-8.1); Sodium 140 mmol/L (136-145)
[2018-09-07] MEDS ORDERED: Sulfameth/Trimethoprim DS 800-160mg TAB ONE (23:03)
== END 2018-09-07 23:05 | disposition home or self-care (01) ==
LOC: BURERS 21:35
DX: N39.0 Urinary tract infection, site not specified (principal); E78.5 Hyperlipidemia, unspecified; E11.9 Type 2 diabetes mellitus without complications; I10 Essential (primary) hypertension; J44.9 Chronic obstructive pulmonary disease, unspecified; F17.210 Nicotine dependence, cigarettes, uncomplicated; G47.30 Sleep apnea, unspecified; Z86.73 Personal history of transient ischemic attack (TIA), and cerebral infarction without residual deficits; Z86.718 Personal history of other venous thrombosis and embolism; Z79.891 Long term (current) use of opiate analgesic; Z79.899 Other long term (current) drug therapy
CPT/HCPCS: 36415; 80053; 81003; 81015; 83880; 84484; 85025; 87086; 99284

== ENCOUNTER 2019-02-07 11:11 | Emergency (ER) | payer MEDICARE, MEDICAID ==
[2019-02-07 12:05] LABS: Bilirubin Small (Negative); Blood, Urine Trace (Negative); Clarity Clear (Clear); Glucose, Urine (Dipstick) Negative (Negative); Leukocyte Trace (Negative); Nitrite Negative (Negative); Protein, Urine (Dipstick) Trace mg/dL (Neg-Trace)
[2019-02-07 12:09] LABS: Bacteria/HPF 3+ HPF (None Seen); RBC/HPF 0-3 HPF (0-3); Squamous Epithelial 0-3 HPF (0-3); WBC/HPF 0-3 HPF (0-3)
[2019-02-07 12:10] LABS: #Basophils 0.1 thou/uL (0.0-0.2); #Eosinphils 0.1 thou/uL (0.0-0.7); #Lymphocytes 1.3 thou/uL (1.20-3.40); #Monocytes 0.4 thou/uL (0.11-0.59); #Neutrophils 2.7 thou/uL (1.40-6.50); %Basophils 1.4 % (0.0-1.0); %Eosinophils 2.3 % (0.0-10.0); %Lymphocytes 28.5 % (21.0-51.0); %Monocytes 7.9 % (0.0-10.0); %Neutrophils 59.8 % (42.0-75.0); Hemoglobin 13.8 g/dL (14.0-18.0); Mean Corpuscular HGB CONC 33.3 g/dL (32.0-36.0); Mean Corpuscular Hemoglobin 30.5 pg (27.0-31.0); Mean Corpuscular Volume 91.7 fL (78.0-98.0); Mean Platelet Volume 5.4 fL (7.4-10.4); Platelet Count 263 thou/uL (130-400); RBC Distribution Width 13.1 % (11.5-14.5); Red Blood Cell (RBC) Count 4.52 mill/uL (4.70-6.10); White Blood Cell (WBC) Count 4.5 thou/uL (4.8-10.8)
[2019-02-07 12:17] LABS: ALT (SGPT) 11 U/L (8-55); AST (SGOT) 16 U/L (5-34); Albumin 4.4 g/dL (3.4-4.8); Alkaline Phosphatase 72 U/L (40-110); Anion Gap 14 mmol/L (10-20); BUN (Urea Nitrogen) 21 mg/dL (8.4-25.7); Bilirubin, Total 0.6 mg/dL (0.2-1.2); Calc. Creatinine Clearance 0 mL/min (70-130); Calcium 9.5 mg/dL (7.8-10.44); Carbon Dioxide 24 mmol/L (23-31); Chloride 106 mmol/L (98-107); Estimated GFR-MDRD 57; Globulin 3.4 g/dL (2.4-3.5); Glucose 83 mg/dL (83-110); Potassium 3.7 mmol/L (3.5-5.1); Protein, Total 7.8 g/dL (5.8-8.1); Sodium 140 mmol/L (136-145)
[2019-02-07] MEDS ORDERED: cefTRIAXone\\ROCEPHIN 1 GM VIAL ONE (13:14)
[2019-02-07] MEDS ORDERED: cefTRIAXone\\ROCEPHIN 2 GM VIAL ONE (13:16)
--- NOTE | 2019-02-07 18:03 | RAD ---
PORTABLE CHEST: 02/07/19 An AP portable film at 1151 is compared with a 06/04/17 study. The heart is normal in size. Calcification is seen in the aortic arch. There is no vascular congesti on, edema, or pleural effusion. No major lobar infiltrate was seen. There is question of some minimal right basilar haziness, but the finding is equivocal. IMPRESSION: Questionable right basilar haziness. POS: HOME
== END 2019-02-07 14:15 | disposition home or self-care (01) ==
LOC: BURERS 11:11
DX: J06.9 Acute upper respiratory infection, unspecified (principal); I11.0 Hypertensive heart disease with heart failure; I50.9 Heart failure, unspecified; E11.9 Type 2 diabetes mellitus without complications; E78.5 Hyperlipidemia, unspecified; E78.2 Mixed hyperlipidemia; G47.30 Sleep apnea, unspecified; Z86.73 Personal history of transient ischemic attack (TIA), and cerebral infarction without residual deficits; Z86.711 Personal history of pulmonary embolism; J44.9 Chronic obstructive pulmonary disease, unspecified; Z86.718 Personal history of other venous thrombosis and embolism; F17.210 Nicotine dependence, cigarettes, uncomplicated; Z79.899 Other long term (current) drug therapy; Z79.01 Long term (current) use of anticoagulants; Z79.84 Long term (current) use of oral hypoglycemic drugs
CPT/HCPCS: 71045; 80053; 81003; 81015; 83605; 83880; 84484; 85025; 87040; 87086; 96365; J0696

== ENCOUNTER 2019-03-28 18:02 | Emergency (ER) | payer MEDICARE, MEDICAID ==
[2019-03-28 19:34] LABS: #Basophils 0.1 thou/uL (0.0-0.2); #Eosinphils 0.2 thou/uL (0.0-0.7); #Lymphocytes 1.7 thou/uL (1.20-3.40); #Monocytes 0.5 thou/uL (0.11-0.59); #Neutrophils 2.9 thou/uL (1.40-6.50); %Basophils 1.7 % (0.0-1.0); %Eosinophils 3.3 % (0.0-10.0); %Lymphocytes 31.6 % (21.0-51.0); %Monocytes 8.6 % (0.0-10.0); %Neutrophils 54.8 % (42.0-75.0); Hemoglobin 13.9 g/dL (14.0-18.0); Mean Corpuscular HGB CONC 32.8 g/dL (32.0-36.0); Mean Corpuscular Hemoglobin 30.7 pg (27.0-31.0); Mean Corpuscular Volume 93.6 fL (78.0-98.0); Platelet Count 246 thou/uL (130-400); RBC Distribution Width 12.7 % (11.5-14.5); Red Blood Cell (RBC) Count 4.52 mill/uL (4.70-6.10); White Blood Cell (WBC) Count 5.3 thou/uL (4.8-10.8)
[2019-03-28 19:48] LABS: ALT (SGPT) 9 U/L (8-55); AST (SGOT) 16 U/L (5-34); Alkaline Phosphatase 70 U/L (40-110); Anion Gap 13 mmol/L (10-20); BUN (Urea Nitrogen) 12 mg/dL (8.4-25.7); Bilirubin, Total 0.7 mg/dL (0.2-1.2); Calc. Creatinine Clearance 0 mL/min (70-130); Calcium 8.9 mg/dL (7.8-10.44); Carbon Dioxide 28 mmol/L (23-31); Chloride 102 mmol/L (98-107); Estimated GFR-MDRD 49; Globulin 3.3 g/dL (2.4-3.5); Glucose 79 mg/dL (83-110); Lipase 40 U/L (8-78); Protein, Total 7.3 g/dL (5.8-8.1); Sodium 139 mmol/L (136-145)
--- NOTE | 2019-03-28 21:39 | RAD ---
PORTABLE CHEST: 03/28/19 An AP portable film at 1918 is compared with a 02/07/19 study. The heart is normal in size. The mediastinum shows no widening or shift. No major infiltrate, effusio n, or pneumothorax was seen. The ribs appears intact. IMPRESSION: No acute thoracic finding. POS: HOME
--- NOTE | 2019-03-28 21:46 | CT ---
CT ABDOMEN AND PELVIS WITH CONTRAST: 03/28/19 CT of the abdomen and pelvis was done post IV contrast for evaluation of left upper quadrant trauma a nd pain. Due to a low GFR, the amount of contrast given was limited to 50 mL. Comparison is made with a 07/25/18 study. Infiltrative changes in the right lower lobe are chronic and have been seen on prior studies. Otherwi se, the visible portions of the lungs are clear. There is no sign of pneumothorax. I could not apprec iate any rib fractures. The liver and spleen showed no acute findings. The patient's spleen is rather small, but no different than prior scans. There is no sign of laceration or hematoma of it or any other major organ. Both ki dneys appear intact. There are two larger cysts in the right kidney measuring near 2 cm in size. They have not changed since the prior exam. A subcentimeter cyst is seen in the lower pole of the right kidney. No solid mass or hydronephrosis was apparent in either. The abdominal aorta was normal in keshia earance. No adrenal masses were seen. There has been a prior cholecystectomy. The bowel shows no distention or inflammatory change around it. No free air or free fluid was evident in the abdomen. CT of the pelvis showed no pelvic masses, fluid collections, or inflammatory changes. The prostate is somewhat generous in size. The bony pelvis appears intact. Degenerative changes are present througho ut the spine including multilevel degenerative disc disease. IMPRESSION: Chronic changes but no acute traumatic findings. The spleen is small but appears intact. Findings discussed with Dr. Jimenez at 2035. POS: HOME
== END 2019-03-28 20:46 | disposition home or self-care (01) ==
LOC: BURERS 18:02
DX: S20.212A Contusion of left front wall of thorax, initial encounter (principal); E11.9 Type 2 diabetes mellitus without complications; E78.5 Hyperlipidemia, unspecified; E78.1 Pure hyperglyceridemia; I11.0 Hypertensive heart disease with heart failure; I50.9 Heart failure, unspecified; G47.30 Sleep apnea, unspecified; I49.9 Cardiac arrhythmia, unspecified; J44.9 Chronic obstructive pulmonary disease, unspecified; F17.210 Nicotine dependence, cigarettes, uncomplicated; Z79.891 Long term (current) use of opiate analgesic; Z86.718 Personal history of other venous thrombosis and embolism; Z86.711 Personal history of pulmonary embolism; Z79.899 Other long term (current) drug therapy; X58.XXXA Exposure to other specified factors, initial encounter
CPT/HCPCS: 71045; 74177; 80053; 83690; 85025; 93005; Q9967

== ENCOUNTER 2019-07-29 20:57 | Emergency (ER) | payer MEDICARE, OTHER ==
[2019-07-29 21:28] LABS: Bilirubin Small (Negative); Blood, Urine Trace (Negative); Clarity Slightly Cloudy (Clear); Glucose, Urine (Dipstick) Negative (Negative); Leukocyte Small (Negative); Nitrite Negative (Negative); Protein, Urine (Dipstick) Negative (Neg-Trace)
[2019-07-29 21:32] LABS: Bacteria/HPF 1+ HPF (None Seen); Squamous Epithelial 0-3 HPF (0-3)
[2019-07-29 21:39] LABS: Band 1 % (5-11); Eosinophils 5 % (0-10); Hemoglobin 14.2 g/dL (14.0-18.0); Lymphocytes 30 % (21-51); MDiff Complete? YES; Mean Corpuscular HGB CONC 32.2 g/dL (32.0-36.0); Mean Corpuscular Hemoglobin 30.5 pg (27.0-31.0); Mean Corpuscular Volume 94.6 fL (78.0-98.0); Mean Platelet Volume 5.9 fL (7.4-10.4); Monocytes 11 % (0-10); Neutrophil 53 % (42-75); Platelet Count 299 thou/uL (130-400); Platelet Morphology Comment Appears Adequate; RBC Distribution Width 13.9 % (11.5-14.5); RBC Morphology Normal; Red Blood Cell (RBC) Count 4.67 mill/uL (4.70-6.10); Small Platelets SLIGHT; White Blood Cell (WBC) Count 5.3 thou/uL (4.8-10.8)
[2019-07-29 21:41] LABS: ALT (SGPT) Less than 7 U/L (8-55); AST (SGOT) 14 U/L (5-34); Albumin 4.1 g/dL (3.4-4.8); Alkaline Phosphatase 73 U/L (40-110); Anion Gap 15 mmol/L (10-20); BUN (Urea Nitrogen) 14 mg/dL (8.4-25.7); Bilirubin, Total 0.7 mg/dL (0.2-1.2); Calc. Creatinine Clearance 0 mL/min (70-130); Calcium 8.9 mg/dL (7.8-10.44); Carbon Dioxide 23 mmol/L (23-31); Chloride 106 mmol/L (98-107); Estimated GFR-MDRD 54; Globulin 3.1 g/dL (2.4-3.5); Glucose 94 mg/dL (83-110); Lipase 34 U/L (8-78); Potassium 4.1 mmol/L (3.5-5.1); Protein, Total 7.2 g/dL (5.8-8.1); Sodium 140 mmol/L (136-145)
--- NOTE | 2019-07-29 23:09 | RAD ---
PORTABLE CHEST: 07/29/19 An AP portable film at 2121 is compared with an 03/28/19 study. The heart is normal in size. Calcification is see in the aortic arch as usual. There is no acute infi ltrate or effusion. Minor accentuation of right basilar markings is no different than before. IMPRESSION: No acute thoracic findings. POS: HOME
== END 2019-07-29 22:00 | disposition home or self-care (01) ==
LOC: BURERS 20:57
DX: R55 Syncope and collapse (principal); I11.0 Hypertensive heart disease with heart failure; I50.9 Heart failure, unspecified; E11.9 Type 2 diabetes mellitus without complications; E78.2 Mixed hyperlipidemia; G47.30 Sleep apnea, unspecified; F17.210 Nicotine dependence, cigarettes, uncomplicated; J44.9 Chronic obstructive pulmonary disease, unspecified; Z86.73 Personal history of transient ischemic attack (TIA), and cerebral infarction without residual deficits; Z86.711 Personal history of pulmonary embolism; Z86.718 Personal history of other venous thrombosis and embolism; Z79.899 Other long term (current) drug therapy; Z79.84 Long term (current) use of oral hypoglycemic drugs; Z79.01 Long term (current) use of anticoagulants
CPT/HCPCS: 71045; 80053; 81003; 81015; 83690; 84484; 85025; 93005

== ENCOUNTER 2019-09-29 19:08 | Emergency (ER) | payer MEDICARE, OTHER ==
[2019-09-29 20:03] LABS: #Basophils 0.1 thou/uL (0.0-0.2); #Eosinphils 0.4 thou/uL (0.0-0.7); #Lymphocytes 1.9 thou/uL (1.20-3.40); #Monocytes 0.5 thou/uL (0.11-0.59); #Neutrophils 3.6 thou/uL (1.40-6.50); %Basophils 1.7 % (0.0-1.0); %Eosinophils 5.8 % (0.0-10.0); %Lymphocytes 29.6 % (21.0-51.0); %Monocytes 7.5 % (0.0-10.0); %Neutrophils 55.5 % (42.0-75.0); Mean Corpuscular HGB CONC 31.2 g/dL (32.0-36.0); Mean Corpuscular Hemoglobin 30.1 pg (27.0-31.0); Mean Corpuscular Volume 96.6 fL (78.0-98.0); Mean Platelet Volume 6.2 fL (7.4-10.4); Platelet Count 280 thou/uL (130-400); RBC Distribution Width 13.4 % (11.5-14.5); Red Blood Cell (RBC) Count 4.65 mill/uL (4.70-6.10); White Blood Cell (WBC) Count 6.5 thou/uL (4.8-10.8)
[2019-09-29 20:04] LABS: ALT (SGPT) 12 U/L (8-55); AST (SGOT) 17 U/L (5-34); Albumin 4.2 g/dL (3.4-4.8); Alkaline Phosphatase 70 U/L (40-110); Anion Gap 16 mmol/L (10-20); BUN (Urea Nitrogen) 16 mg/dL (8.4-25.7); Bilirubin, Total 0.5 mg/dL (0.2-1.2); Calc. Creatinine Clearance 0 mL/min (70-130); Calcium 9.1 mg/dL (7.8-10.44); Carbon Dioxide 24 mmol/L (23-31); Chloride 106 mmol/L (98-107); Estimated GFR-MDRD 40; Globulin 3.2 g/dL (2.4-3.5); Glucose 93 mg/dL (83-110); Potassium 4.1 mmol/L (3.5-5.1); Protein, Total 7.4 g/dL (5.8-8.1); Sodium 142 mmol/L (136-145)
--- NOTE | 2019-09-29 21:15 | RAD ---
PORTABLE CHEST: 09/29/19 An AP portable film at 1945 is compared with a 07/29/2019 study. There has been no adverse interval change. The lungs are clear and the heart is normal in size. Dens e calcification is seen in the aortic arch. IMPRESSION: No acute thoracic findings. POS: HOME
== END 2019-09-29 20:25 | disposition home or self-care (01) ==
LOC: BURERS 19:08
DX: N28.9 Disorder of kidney and ureter, unspecified (principal); R53.81 Other malaise; I11.0 Hypertensive heart disease with heart failure; I50.9 Heart failure, unspecified; I49.9 Cardiac arrhythmia, unspecified; E11.9 Type 2 diabetes mellitus without complications; E78.2 Mixed hyperlipidemia; G47.30 Sleep apnea, unspecified; J44.9 Chronic obstructive pulmonary disease, unspecified; F17.210 Nicotine dependence, cigarettes, uncomplicated; Z86.73 Personal history of transient ischemic attack (TIA), and cerebral infarction without residual deficits; Z86.711 Personal history of pulmonary embolism; Z86.718 Personal history of other venous thrombosis and embolism; Z79.899 Other long term (current) drug therapy; Z79.01 Long term (current) use of anticoagulants; Z79.84 Long term (current) use of oral hypoglycemic drugs; Z71.6 Tobacco abuse counseling
CPT/HCPCS: 71045; 80053; 83605; 83880; 84484; 85025; 93005; 94760; 99406

== ENCOUNTER 2019-10-25 15:38 | Emergency (ER) | payer MEDICARE, MEDICAID ==
[2019-10-25] MEDS ORDERED: Ondansetron PF 4 MG/2 ML Vial ONE (16:23)
[2019-10-25 16:28] LABS: #Basophils 0.1 thou/uL (0.0-0.2); #Eosinphils 0.1 thou/uL (0.0-0.7); #Lymphocytes 1.1 thou/uL (1.20-3.40); #Monocytes 0.4 thou/uL (0.11-0.59); #Neutrophils 6.5 thou/uL (1.40-6.50); %Basophils 1.2 % (0.0-1.0); %Eosinophils 1.4 % (0.0-10.0); %Lymphocytes 13.1 % (21.0-51.0); %Monocytes 4.9 % (0.0-10.0); %Neutrophils 79.4 % (42.0-75.0); Hemoglobin 14.5 g/dL (14.0-18.0); Mean Corpuscular HGB CONC 30.9 g/dL (32.0-36.0); Mean Corpuscular Volume 97.3 fL (78.0-98.0); Platelet Count 279 thou/uL (130-400); RBC Distribution Width 13.6 % (11.5-14.5); Red Blood Cell (RBC) Count 4.83 mill/uL (4.70-6.10); White Blood Cell (WBC) Count 8.2 thou/uL (4.8-10.8)
[2019-10-25 16:37] LABS: ALT (SGPT) 11 U/L (8-55); AST (SGOT) 15 U/L (5-34); Albumin 4.4 g/dL (3.4-4.8); Alkaline Phosphatase 76 U/L (40-110); Anion Gap 14 mmol/L (10-20); BUN (Urea Nitrogen) 12 mg/dL (8.4-25.7); Bilirubin, Total 0.9 mg/dL (0.2-1.2); Calc. Creatinine Clearance 0 mL/min (70-130); Calcium 9.5 mg/dL (7.8-10.44); Carbon Dioxide 24 mmol/L (23-31); Chloride 109 mmol/L (98-107); Estimated GFR-MDRD 54; Globulin 3.4 g/dL (2.4-3.5); Glucose 101 mg/dL (83-110); Protein, Total 7.8 g/dL (5.8-8.1); Sodium 143 mmol/L (136-145)
[2019-10-25 17:59] LABS: Bilirubin Negative (Negative); Blood, Urine Trace (Negative); Clarity Clear (Clear); Glucose, Urine (Dipstick) Negative (Negative); Leukocyte Trace (Negative); Nitrite Negative (Negative); Protein, Urine (Dipstick) 30 mg/dL (Neg-Trace); Urobilinogen 0.2 mg/dL (Less than 2)
[2019-10-25 18:01] LABS: Bacteria/HPF None Seen HPF (None Seen); RBC/HPF 0-3 HPF (0-3); Squamous Epithelial 0-3 HPF (0-3); WBC/HPF 0-3 HPF (0-3)
== END 2019-10-25 18:19 | disposition home or self-care (01) ==
LOC: BURERS 15:38
DX: R11.2 Nausea with vomiting, unspecified (principal); R19.7 Diarrhea, unspecified; E11.9 Type 2 diabetes mellitus without complications; I11.0 Hypertensive heart disease with heart failure; I50.9 Heart failure, unspecified; E78.1 Pure hyperglyceridemia; E78.5 Hyperlipidemia, unspecified; E78.00 Pure hypercholesterolemia, unspecified; G47.30 Sleep apnea, unspecified; J44.9 Chronic obstructive pulmonary disease, unspecified; F17.210 Nicotine dependence, cigarettes, uncomplicated; Z86.711 Personal history of pulmonary embolism; Z86.718 Personal history of other venous thrombosis and embolism; Z79.891 Long term (current) use of opiate analgesic; Z79.899 Other long term (current) drug therapy; Z86.73 Personal history of transient ischemic attack (TIA), and cerebral infarction without residual deficits
CPT/HCPCS: 36415; 80053; 81003; 81015; 84484; 85025; 93005; 94760; 96361; 96374; J2405

== ENCOUNTER 2020-03-25 19:20 | Inpatient (IN) | payer MEDICARE, MEDICAID ==
[2020-03-25] MEDS ORDERED: Nitroglycerin 0.4 MG TAB (25 Tab Bottle) SL PRN (23:04)
[2020-03-25] MEDS ORDERED: Mag-Al 1200 mg/1200 mg/30 ML UDCUP PO PRN (23:04)
[2020-03-25] MEDS ORDERED: Guaifenesin DM 100-10/5 ML UDCUP PO PRN (23:04)
[2020-03-25] MEDS ORDERED: diphenhydrAMINE 25 MG CAP PO PRN (23:04)
[2020-03-25] MEDS ORDERED: Acetaminophen 325 MG TAB PO PRN (23:04)
[2020-03-25] MEDS ORDERED: Bisacodyl 5 MG TAB PO PRN (23:04)
[2020-03-25] MEDS ORDERED: HYDROcodone/Acetaminophen 5/325 mg Tablet PO PRN ×2 (23:04)
[2020-03-25] MEDS ORDERED: Zolpidem Tartrate 5 MG TAB PO PRN (23:04)
[2020-03-25] MEDS ORDERED: Bisacodyl 10 MG SUPP PR PRN (23:04)
[2020-03-26] MEDS: Albuterol Sulfate 2.5 mg/3 ml Neb NEB SCH ×3 (08:07→18:26)
[2020-03-26] MEDS: Acetylcysteine 10% 100 MG/ML (4ML VIAL) INH SCH ×3 (08:11→18:32)
[2020-03-26] MEDS: Rosuvastatin 10 MG TAB PO SCH (08:13)
[2020-03-26] MEDS: Metoprolol Tartrate 25 MG TAB PO SCH ×2 (08:13→20:22)
[2020-03-26] MEDS: Enoxaparin Sodium 40 MG/0.4 ML SYRINGE SC SCH (08:13)
[2020-03-26] MEDS: Amiodarone 200 MG TAB PO SCH ×2 (08:13→20:22)
[2020-03-26] MEDS: Sulfameth/Trimethoprim DS 800-160mg TAB PO SCH ×2 (08:14→20:21)
[2020-03-26] MEDS: Furosemide 40 MG TAB PO SCH (08:14)
[2020-03-26] MEDS: Aspirin Chewable 81 MG TAB PO SCH (08:14)
[2020-03-26] MEDS: Docusate 100 MG CAP PO SCH ×2 (08:14→20:21)
[2020-03-26] MEDS ORDERED: FLU VACC QS2020-21(65YR UP)/PF 240 MCG/0.7 ML SYRINGE IM ONE (09:00)
[2020-03-26] MEDS: Tamsulosin HCl 0.4 MG CAP PO SCH (20:21)
[2020-03-27] MEDS: Albuterol Sulfate 2.5 mg/3 ml Neb NEB SCH ×3 (06:22→18:16)
[2020-03-27] MEDS: Acetylcysteine 10% 100 MG/ML (4ML VIAL) INH SCH ×3 (06:23→18:10)
[2020-03-27] MEDS: Metoprolol Tartrate 25 MG TAB PO SCH ×2 (08:31→20:33)
[2020-03-27] MEDS: Rosuvastatin 10 MG TAB PO SCH (08:31)
[2020-03-27] MEDS: Aspirin Chewable 81 MG TAB PO SCH (08:33)
[2020-03-27] MEDS: Docusate 100 MG CAP PO SCH ×2 (08:33→20:33)
[2020-03-27] MEDS: Sulfameth/Trimethoprim DS 800-160mg TAB PO SCH ×2 (08:33→20:33)
[2020-03-27] MEDS: Furosemide 40 MG TAB PO SCH (08:33)
[2020-03-27] MEDS: Amiodarone 200 MG TAB PO SCH ×2 (08:34→20:33)
[2020-03-27] MEDS: Enoxaparin Sodium 40 MG/0.4 ML SYRINGE SC SCH (08:34)
[2020-03-27] MEDS: Nystatin 500,000 UNITS/5 ML UDCUP SSW SCH (18:08)
[2020-03-27] MEDS: Tamsulosin HCl 0.4 MG CAP PO SCH (20:33)
[2020-03-28] MEDS: Albuterol Sulfate 2.5 mg/3 ml Neb NEB SCH ×2 (06:08→13:53)
[2020-03-28] MEDS: Acetylcysteine 10% 100 MG/ML (4ML VIAL) INH SCH ×3 (06:10→20:23)
[2020-03-28] MEDS: Amiodarone 200 MG TAB PO SCH ×2 (08:02→20:22)
[2020-03-28] MEDS: Rosuvastatin 10 MG TAB PO SCH (08:02)
[2020-03-28] MEDS: Docusate 100 MG CAP PO SCH ×2 (08:02→20:22)
[2020-03-28] MEDS: Aspirin Chewable 81 MG TAB PO SCH (08:02)
[2020-03-28] MEDS: Sulfameth/Trimethoprim DS 800-160mg TAB PO SCH ×2 (08:02→20:22)
[2020-03-28] MEDS: Furosemide 40 MG TAB PO SCH (08:03)
[2020-03-28] MEDS: Nystatin 500,000 UNITS/5 ML UDCUP SSW SCH ×3 (08:03→17:33)
[2020-03-28] MEDS: Enoxaparin Sodium 40 MG/0.4 ML SYRINGE SC SCH (08:03)
[2020-03-28] MEDS: Metoprolol Tartrate 25 MG TAB PO SCH ×2 (08:03→20:22)
[2020-03-28] MEDS ORDERED: MINERAL OIL PR PRN (16:45)
[2020-03-28] MEDS ORDERED: Mag-Al Plus 1200 MG/1200 MG/120 MG/30 ML UDCUP PO PRN (17:00)
[2020-03-28] MEDS ORDERED: Albuterol Sulfate 2.5 mg/3 ml Neb NEB SCH (18:00)
[2020-03-28] MEDS: Tamsulosin HCl 0.4 MG CAP PO SCH (20:22)
[2020-03-29] MEDS: Acetylcysteine 10% 100 MG/ML (4ML VIAL) INH SCH ×3 (07:52→20:45)
[2020-03-29] MEDS: Furosemide 40 MG TAB PO SCH (07:57)
[2020-03-29] MEDS: Nystatin 500,000 UNITS/5 ML UDCUP SSW SCH ×3 (07:57→18:24)
[2020-03-29] MEDS: Metoprolol Tartrate 25 MG TAB PO SCH ×2 (08:00→20:44)
[2020-03-29] MEDS: Sulfameth/Trimethoprim DS 800-160mg TAB PO SCH ×2 (08:00→20:44)
[2020-03-29] MEDS: Enoxaparin Sodium 40 MG/0.4 ML SYRINGE SC SCH (08:00)
[2020-03-29] MEDS: Amiodarone 200 MG TAB PO SCH ×2 (08:01→20:43)
[2020-03-29] MEDS: Rosuvastatin 10 MG TAB PO SCH (08:01)
[2020-03-29] MEDS: Docusate 100 MG CAP PO SCH ×2 (08:01→20:42)
[2020-03-29] MEDS: Aspirin Chewable 81 MG TAB PO SCH (08:01)
[2020-03-29] MEDS: Tamsulosin HCl 0.4 MG CAP PO SCH (20:42)
[2020-03-30] MEDS: Acetylcysteine 10% 100 MG/ML (4ML VIAL) INH SCH ×3 (07:46→20:39)
[2020-03-30] MEDS: Nystatin 500,000 UNITS/5 ML UDCUP SSW SCH ×3 (07:50→18:10)
[2020-03-30] MEDS: Furosemide 40 MG TAB PO SCH (07:51)
[2020-03-30] MEDS: Docusate 100 MG CAP PO SCH ×2 (07:52→20:37)
[2020-03-30] MEDS: Amiodarone 200 MG TAB PO SCH ×2 (07:52→20:37)
[2020-03-30] MEDS: Aspirin Chewable 81 MG TAB PO SCH (07:52)
[2020-03-30] MEDS: Rosuvastatin 10 MG TAB PO SCH (07:53)
[2020-03-30] MEDS: Enoxaparin Sodium 40 MG/0.4 ML SYRINGE SC SCH (07:53)
[2020-03-30] MEDS: Sulfameth/Trimethoprim DS 800-160mg TAB PO SCH (07:53)
[2020-03-30] MEDS: Metoprolol Tartrate 25 MG TAB PO SCH ×2 (07:54→20:38)
[2020-03-30] MEDS: Tamsulosin HCl 0.4 MG CAP PO SCH (20:38)
[2020-03-31 05:21] LABS: #Basophils 0.1 thou/uL (0.0-0.2); #Eosinphils 0.2 thou/uL (0.0-0.7); #Lymphocytes 1.8 thou/uL (1.20-3.40); #Monocytes 0.6 thou/uL (0.11-0.59); #Neutrophils 7.9 thou/uL (1.40-6.50); %Eosinophils 1.9 % (0.0-10.0); %Lymphocytes 16.6 % (21.0-51.0); %Monocytes 5.8 % (0.0-10.0); %Neutrophils 74.7 % (42.0-75.0); Hemoglobin 8.6 g/dL (14.0-18.0); Mean Corpuscular HGB CONC 32.4 g/dL (32.0-36.0); Mean Corpuscular Hemoglobin 30.3 pg (27.0-31.0); Mean Corpuscular Volume 93.6 fL (78.0-98.0); Mean Platelet Volume 6.7 fL (7.4-10.4); Platelet Count 528 thou/uL (130-400); Red Blood Cell (RBC) Count 2.82 mill/uL (4.70-6.10); White Blood Cell (WBC) Count 10.6 thou/uL (4.8-10.8)
[2020-03-31 06:03] LABS: ALT (SGPT) 22 U/L (8-55); AST (SGOT) 20 U/L (5-34); Alkaline Phosphatase 55 U/L (40-110); Anion Gap 16 mmol/L (10-20); BUN (Urea Nitrogen) 15 mg/dL (8.4-25.7); Bilirubin, Total 0.4 mg/dL (0.2-1.2); Calc. Creatinine Clearance 32 mL/min (70-130); Calcium 8.2 mg/dL (7.8-10.44); Carbon Dioxide 25 mmol/L (23-31); Chloride 101 mmol/L (98-107); Globulin 3.4 g/dL (2.4-3.5); Glucose 122 mg/dL (83-110); Potassium 4.5 mmol/L (3.5-5.1); Protein, Total 6.4 g/dL (5.8-8.1); Sodium 137 mmol/L (136-145)
[2020-03-31] MEDS: Nystatin 500,000 UNITS/5 ML UDCUP SSW SCH ×3 (08:01→16:33)
[2020-03-31] MEDS: Furosemide 40 MG TAB PO SCH (08:04)
[2020-03-31] MEDS: Amiodarone 200 MG TAB PO SCH ×2 (08:04→20:24)
[2020-03-31] MEDS: Rosuvastatin 10 MG TAB PO SCH (08:04)
[2020-03-31] MEDS: Metoprolol Tartrate 25 MG TAB PO SCH ×2 (08:04→20:24)
[2020-03-31] MEDS: Enoxaparin Sodium 40 MG/0.4 ML SYRINGE SC SCH (08:04)
[2020-03-31] MEDS: Docusate 100 MG CAP PO SCH ×2 (08:04→20:24)
[2020-03-31] MEDS: Aspirin Chewable 81 MG TAB PO SCH (08:04)
[2020-03-31] MEDS: Acetylcysteine 10% 100 MG/ML (4ML VIAL) INH SCH ×3 (08:11→20:24)
[2020-03-31] MEDS ORDERED: Furosemide 40 MG TAB PO SCH (08:30)
--- NOTE | 2020-03-31 08:47 | RAD ---
TWO VIEWS OF THE CHEST: COMPARISON: 03/24/2020. HISTORY: Pleural effusion. FINDINGS: Two views of the chest show a normal-size cardiomediastinal silhouette. The patient is status post s ternotomy. Diffuse increased interstitial lung markings are present. There are small bilateral pleu ral effusions with adjacent atelectasis versus infiltrates. There may be an infiltrate in the inferi or aspect of the right lower lobe which is new compared to the prior examination. Degenerative yost es are seen in the spine. IMPRESSION: 1. Bilateral pleural effusions. 2. New infiltrate in the inferior aspect of the right lower lobe. POS: [facility]
[2020-03-31] MEDS: Tamsulosin HCl 0.4 MG CAP PO SCH (20:24)
[2020-04-01] MEDS: Furosemide 40 MG TAB PO SCH (07:37)
[2020-04-01] MEDS: Nystatin 500,000 UNITS/5 ML UDCUP SSW SCH ×3 (07:37→17:41)
[2020-04-01] MEDS: Acetylcysteine 10% 100 MG/ML (4ML VIAL) INH SCH ×3 (07:38→20:16)
[2020-04-01] MEDS: Rosuvastatin 10 MG TAB PO SCH (09:52)
[2020-04-01] MEDS: Amiodarone 200 MG TAB PO SCH ×2 (09:53→20:16)
[2020-04-01] MEDS: Aspirin Chewable 81 MG TAB PO SCH (09:53)
[2020-04-01] MEDS: Docusate 100 MG CAP PO SCH ×2 (09:53→20:16)
[2020-04-01] MEDS: Metoprolol Tartrate 25 MG TAB PO SCH ×2 (09:53→20:16)
[2020-04-01] MEDS: Enoxaparin Sodium 40 MG/0.4 ML SYRINGE SC SCH (09:54)
[2020-04-01] MEDS: Tamsulosin HCl 0.4 MG CAP PO SCH (20:16)
[2020-04-02] MEDS: Furosemide 40 MG TAB PO SCH (07:43)
[2020-04-02] MEDS: Nystatin 500,000 UNITS/5 ML UDCUP SSW SCH ×3 (07:43→16:55)
[2020-04-02] MEDS: Acetylcysteine 10% 100 MG/ML (4ML VIAL) INH SCH ×3 (08:57→20:27)
[2020-04-02] MEDS: Rosuvastatin 10 MG TAB PO SCH (08:58)
[2020-04-02] MEDS: Metoprolol Tartrate 25 MG TAB PO SCH ×2 (08:58→20:29)
[2020-04-02] MEDS: Amiodarone 200 MG TAB PO SCH ×2 (08:58→20:29)
[2020-04-02] MEDS: Aspirin Chewable 81 MG TAB PO SCH (08:58)
[2020-04-02] MEDS: Docusate 100 MG CAP PO SCH ×2 (08:59→20:29)
[2020-04-02] MEDS: Enoxaparin Sodium 40 MG/0.4 ML SYRINGE SC SCH (08:59)
[2020-04-02] MEDS: Tamsulosin HCl 0.4 MG CAP PO SCH (20:29)
[2020-04-03] MEDS: Rosuvastatin 10 MG TAB PO SCH (08:11)
[2020-04-03] MEDS: Docusate 100 MG CAP PO SCH ×2 (08:11→20:23)
[2020-04-03] MEDS: Aspirin Chewable 81 MG TAB PO SCH (08:11)
[2020-04-03] MEDS: Metoprolol Tartrate 25 MG TAB PO SCH ×2 (08:11→20:22)
[2020-04-03] MEDS: Amiodarone 200 MG TAB PO SCH ×2 (08:12→20:22)
[2020-04-03] MEDS: Furosemide 40 MG TAB PO SCH (08:12)
[2020-04-03] MEDS: Enoxaparin Sodium 40 MG/0.4 ML SYRINGE SC SCH (08:12)
[2020-04-03] MEDS: Nystatin 500,000 UNITS/5 ML UDCUP SSW SCH ×3 (08:12→16:39)
[2020-04-03] MEDS: Acetylcysteine 10% 100 MG/ML (4ML VIAL) INH SCH ×3 (08:28→20:32)
[2020-04-03] MEDS: Tamsulosin HCl 0.4 MG CAP PO SCH (20:23)
[2020-04-04 05:14] LABS: ALT (SGPT) 23 U/L (8-55); AST (SGOT) 17 U/L (5-34); Alkaline Phosphatase 54 U/L (40-110); Anion Gap 15 mmol/L (10-20); BUN (Urea Nitrogen) 20 mg/dL (8.4-25.7); Bilirubin, Total 0.3 mg/dL (0.2-1.2); Calc. Creatinine Clearance 33 mL/min (70-130); Calcium 8.3 mg/dL (7.8-10.44); Carbon Dioxide 24 mmol/L (23-31); Chloride 103 mmol/L (98-107); Globulin 3.2 g/dL (2.4-3.5); Glucose 126 mg/dL (83-110); Potassium 4.2 mmol/L (3.5-5.1); Protein, Total 6.2 g/dL (5.8-8.1); Sodium 138 mmol/L (136-145)
[2020-04-04 05:19] LABS: Eosinophils 3 % (0-10); Hypochromia SLIGHT = 6-15 cells (100X) (0-5/hpf); Lymphocytes 22 % (21-51); MDiff Complete? YES; Mean Corpuscular Hemoglobin 30.8 pg (27.0-31.0); Mean Corpuscular Volume 93.2 fL (78.0-98.0); Mean Platelet Volume 6.1 fL (7.4-10.4); Monocytes 9 % (0-10); Neutrophil 66 % (42-75); Platelet Count 535 thou/uL (130-400); Platelet Morphology Comment Appears Increased; RBC Distribution Width 14.2 % (11.5-14.5); Red Blood Cell (RBC) Count 2.59 mill/uL (4.70-6.10); White Blood Cell (WBC) Count 7.6 thou/uL (4.8-10.8)
[2020-04-04] MEDS: Docusate 100 MG CAP PO SCH ×2 (08:13→20:54)
[2020-04-04] MEDS: Aspirin Chewable 81 MG TAB PO SCH (08:13)
[2020-04-04] MEDS: Amiodarone 200 MG TAB PO SCH ×2 (08:13→20:54)
[2020-04-04] MEDS: Rosuvastatin 10 MG TAB PO SCH (08:13)
[2020-04-04] MEDS: Furosemide 40 MG TAB PO SCH (08:14)
[2020-04-04] MEDS: Enoxaparin Sodium 40 MG/0.4 ML SYRINGE SC SCH (08:15)
[2020-04-04] MEDS: Nystatin 500,000 UNITS/5 ML UDCUP SSW SCH ×3 (08:15→17:04)
[2020-04-04] MEDS: Metoprolol Tartrate 25 MG TAB PO SCH ×2 (08:23→20:53)
[2020-04-04] MEDS: Acetylcysteine 10% 100 MG/ML (4ML VIAL) INH SCH ×3 (08:23→20:54)
[2020-04-04] MEDS: Tamsulosin HCl 0.4 MG CAP PO SCH (20:53)
[2020-04-05] MEDS: Enoxaparin Sodium 40 MG/0.4 ML SYRINGE SC SCH (08:48)
[2020-04-05] MEDS: Nystatin 500,000 UNITS/5 ML UDCUP SSW SCH ×3 (08:48→17:00)
[2020-04-05] MEDS: Rosuvastatin 10 MG TAB PO SCH (08:49)
[2020-04-05] MEDS: Metoprolol Tartrate 25 MG TAB PO SCH ×2 (08:49→20:16)
[2020-04-05] MEDS: Furosemide 40 MG TAB PO SCH (08:50)
[2020-04-05] MEDS: Aspirin Chewable 81 MG TAB PO SCH (08:50)
[2020-04-05] MEDS: Acetylcysteine 10% 100 MG/ML (4ML VIAL) INH SCH ×3 (08:52→20:26)
[2020-04-05] MEDS: Amiodarone 200 MG TAB PO SCH ×2 (08:59→20:16)
[2020-04-05] MEDS: Docusate 100 MG CAP PO SCH ×2 (09:00→20:16)
[2020-04-05] MEDS: Tamsulosin HCl 0.4 MG CAP PO SCH (20:16)
[2020-04-06] MEDS: Aspirin Chewable 81 MG TAB PO SCH (08:56)
[2020-04-06] MEDS: Amiodarone 200 MG TAB PO SCH ×2 (08:57→20:29)
[2020-04-06] MEDS: Furosemide 40 MG TAB PO SCH (08:57)
[2020-04-06] MEDS: Rosuvastatin 10 MG TAB PO SCH (08:58)
[2020-04-06] MEDS: Docusate 100 MG CAP PO SCH ×2 (08:59→20:29)
[2020-04-06] MEDS: Metoprolol Tartrate 25 MG TAB PO SCH ×2 (08:59→20:29)
[2020-04-06] MEDS: Enoxaparin Sodium 40 MG/0.4 ML SYRINGE SC SCH (09:00)
[2020-04-06] MEDS: Acetylcysteine 10% 100 MG/ML (4ML VIAL) INH SCH ×3 (09:02→20:29)
[2020-04-06] MEDS: Nystatin 500,000 UNITS/5 ML UDCUP SSW SCH ×3 (09:04→17:10)
[2020-04-06] MEDS: Tamsulosin HCl 0.4 MG CAP PO SCH (20:30)
[2020-04-07] MEDS: Enoxaparin Sodium 40 MG/0.4 ML SYRINGE SC SCH (08:23)
[2020-04-07] MEDS: Furosemide 40 MG TAB PO SCH (08:24)
[2020-04-07] MEDS: Docusate 100 MG CAP PO SCH ×2 (08:25→20:40)
[2020-04-07] MEDS: Nystatin 500,000 UNITS/5 ML UDCUP SSW SCH ×3 (08:25→17:56)
[2020-04-07] MEDS: Acetylcysteine 10% 100 MG/ML (4ML VIAL) INH SCH ×3 (08:26→20:39)
[2020-04-07] MEDS: Rosuvastatin 10 MG TAB PO SCH (08:47)
[2020-04-07] MEDS: Aspirin Chewable 81 MG TAB PO SCH (08:47)
[2020-04-07] MEDS: Metoprolol Tartrate 25 MG TAB PO SCH ×2 (08:47→20:40)
[2020-04-07] MEDS: Amiodarone 200 MG TAB PO SCH ×2 (08:49→20:40)
[2020-04-07] MEDS: Tamsulosin HCl 0.4 MG CAP PO SCH (20:40)
[2020-04-08 06:11] VITALS: BP 119/56; TEMP 98.7
[2020-04-08] MEDS: Furosemide 40 MG TAB PO SCH (08:04)
[2020-04-08] MEDS: Acetylcysteine 10% 100 MG/ML (4ML VIAL) INH SCH (08:04)
[2020-04-08] MEDS: Enoxaparin Sodium 40 MG/0.4 ML SYRINGE SC SCH (08:04)
[2020-04-08] MEDS: Rosuvastatin 10 MG TAB PO SCH (08:04)
[2020-04-08] MEDS: Amiodarone 200 MG TAB PO SCH (08:05)
[2020-04-08] MEDS: Metoprolol Tartrate 25 MG TAB PO SCH (08:05)
[2020-04-08] MEDS: Docusate 100 MG CAP PO SCH (08:05)
[2020-04-08] MEDS: Aspirin Chewable 81 MG TAB PO SCH (08:06)
[2020-04-08] MEDS: Nystatin 500,000 UNITS/5 ML UDCUP SSW SCH ×2 (08:07→11:46)
== END 2020-04-08 12:45 | disposition home or self-care (01) | DRG 947 ==
LOC: BURMED 19:20
PROVIDERS: ADMIT Family Medicine; ATTEND Family Medicine
DX: R53.1 Weakness (principal); J18.9 Pneumonia, unspecified organism; N39.0 Urinary tract infection, site not specified; J90 Pleural effusion, not elsewhere classified; J44.0 Chronic obstructive pulmonary disease with (acute) lower respiratory infection; I25.10 Atherosclerotic heart disease of native coronary artery without angina pectoris; Z88.0 Allergy status to penicillin; Z88.8 Allergy status to other drugs, medicaments and biological substances; Z95.1 Presence of aortocoronary bypass graft; Y95 Nosocomial condition; E11.9 Type 2 diabetes mellitus without complications; I48.0 Paroxysmal atrial fibrillation; E78.5 Hyperlipidemia, unspecified
CPT/HCPCS: 36415; 71046; 80053; 85025; J1650; J1956; J7611; J7620